=== PATIENT | female | born 1940 | race Two or more races ===

== ENCOUNTER 2016-11-16 17:38 | Emergency (ER) | payer OTHER ==
[~2016-11-16] VITALS: Ht 162.6 cm; Wt 57.7 kg
[2016-11-16 18:29] LABS: HEMATOCRIT 43.9 % (34.6-47.8); HEMOGLOBIN 14.4 g/dL (11.7-16.4); WHITE BLOOD COUNT 10.2 x10^3/uL (3.4-10)
[2016-11-16] MEDS ORDERED: SODIUM CHLORIDE 0.9% 1,000ML IVBOLUS ONE (18:30)
[2016-11-16] MEDS ORDERED: METF500T4 PO (18:36)
[2016-11-16 18:38] LABS: BLOOD UREA NITROGEN 18 mg/dL (7-18)
[2016-11-16 18:45] LABS: ASPARTATE AMINO TRANSFERASE 17 U/L (15-37)
[2016-11-16 18:47] LABS: IS PT STATUS REG ER OR PRE ER? YES
[2016-11-16] MEDS ORDERED: OMNIPAQUE 350 MG/ML, 100ML BOTTLE ONE (21:31)
[2016-11-16 22:41] VITALS: BP 125/61
== END 2016-11-16 22:44 | disposition home or self-care (01) ==
LOC: ED 20:30
DX: K21.9 Gastro-esophageal reflux disease without esophagitis (principal); G44.219 Episodic tension-type headache, not intractable; R94.31 Abnormal electrocardiogram [ECG] [EKG]; E11.9 Type 2 diabetes mellitus without complications
CPT/HCPCS: 36415; 71010; 74177; 80053; 81003; 83605; 83690; 84443; 84484; 85025; 93005; 99285; J7030; Q9967

== ENCOUNTER 2017-02-10 18:26 | Emergency (ER) | payer MEDICAID, OTHER ==
[~2017-02-10] VITALS: Ht 160 cm; Wt 58.2 kg
[~2017-02-10 18:26] MED LIST: METF500T4 PO
[2017-02-10] MEDS ORDERED: SODIUM CHLORIDE 0.9% 1,000 ML IV ONE (18:43)
[2017-02-10] MEDS ORDERED: ONDANSETRON 2MG/ML, 2ML ONE (18:52)
[2017-02-10] MEDS ORDERED: FAMOTIDINE 20 MG/2 ML ONE (18:52)
[2017-02-10] MEDS ORDERED: SODIUM CHLORIDE 0.9% 1,000ML IVBOLUS ONE (19:00)
[2017-02-10] MEDS ORDERED: FAMOTIDINE 20 MG/2 ML IVP ONE (19:00)
[2017-02-10] MEDS ORDERED: ONDANSETRON 2MG/ML, 2ML IVPush ONE (19:00)
[2017-02-10 19:13] LABS: HEMATOCRIT 42.9 % (34.6-47.8); HEMOGLOBIN 14.3 g/dL (11.7-16.4); WHITE BLOOD COUNT 7.5 x10^3/uL (3.4-10)
[2017-02-10 19:24] LABS: BLOOD UREA NITROGEN 13 mg/dL (7-18)
[2017-02-10 19:27] LABS: ASPARTATE AMINO TRANSFERASE 24 U/L (15-37)
[2017-02-10] MEDS ORDERED: MECLIZINE CHEWABLE 25 MG TAB ONE (19:46)
[2017-02-10] MEDS ORDERED: MECLIZINE CHEWABLE 25 MG TAB PO ONE (20:00)
[2017-02-10 20:02] LABS: PATH.CAST-FLAG NOT PRESENT; SPERM-FLAG NOT PRESENT; SRC-FLAG NOT PRESENT; XTAL-FLAG NOT PRESENT; YLC-FLAG NOT PRESENT
[2017-02-10] MEDS ORDERED: OMNIPAQUE 350 MG/ML, 100ML BOTTLE ONE (20:18)
[2017-02-10 22:26] VITALS: BP 168/80
== END 2017-02-10 22:28 | disposition home or self-care (01) ==
LOC: ED 22:04
DX: K52.9 Noninfective gastroenteritis and colitis, unspecified (principal); E11.9 Type 2 diabetes mellitus without complications; K21.9 Gastro-esophageal reflux disease without esophagitis
CPT/HCPCS: 36415; 70450; 74177; 80053; 81001; 83690; 85025; 87086; 93005; 96361; 96374; 96375; 99285; J2405; J7030; Q9967; S0028

== ENCOUNTER 2017-09-10 19:52 | Inpatient (IN) | payer MEDICARE, MEDICAID ==
[~2017-09-10] VITALS: Ht 162.6 cm; Wt 64.6 kg
[~2017-09-10 19:52] MED LIST changes: -METF500T4 PO; +METF500T5 PO
[2017-09-10] MEDS ORDERED: ONDANSETRON 2MG/ML, 2ML IVPush ONE (20:30)
[2017-09-10] MEDS ORDERED: SODIUM CHLORIDE FLUSH 10ML SYR IVF ONE (20:30)
[2017-09-10] MEDS ORDERED: MORPHINE SULFATE 4 MG/ML, 1ML IVPush PRN (20:30)
[2017-09-10] MEDS ORDERED: SODIUM CHLORIDE 0.9% 1,000ML IVBOLUS ONE (20:30)
[2017-09-10 20:48] LABS: BASOPHILS # (AUTO) 0.01 x10^3/uL (0-0.1); BASOPHILS % (AUTO) 0 % (0-1); EOSINOPHILS # (AUTO) 0.02 x10^3/uL (0-0.4); EOSINOPHILS % (AUTO) 0 % (1-7); LYMPHOCYTES # (AUTO) 0.65 x10^3/uL (1-3.4); LYMPHOCYTES % (AUTO) 6 % (22-44); MD NO; MEAN CORPUSCULAR HEMOGLOBIN 28.7 pg (27.0-34.8); MEAN CORPUSCULAR HGB CONC 33.5 g/dL (32.4-35.8); MEAN CORPUSCULAR VOLUME 85.8 fL (80-100); MEAN PLATELET VOLUME 8.8 fL (7.4-10.4); MONOCYTES # (AUTO) 0.26 x10^3/uL (0.2-0.8); MONOCYTES % (AUTO) 2 % (2-9); NEUTROPHILS # (AUTO) 10.44 x10^3/uL (1.8-6.8); NEUTROPHILS % (AUTO) 92 % (42-75); PLATELET COUNT 169 x10^3/uL (130-400); RED BLOOD COUNT 4.95 x10^6/uL (3.82-5.3); RED CELL DISTRIBUTION WIDTH 13.6 % (9.6-15.2)
[2017-09-10 20:53] LABS: ALBUMIN 3.8 g/dL (3.4-5.0); ANION GAP 9 mmol/L (5-15); CALCIUM 10.1 mg/dL (8.5-10.1); CHLORIDE 108 mmol/L (98-107)
[2017-09-10] MEDS ORDERED: ONDANSETRON ODT 4 MG ONE (20:57)
[2017-09-10] MEDS ORDERED: MORPHINE SULFATE 4 MG/ML, 1ML ONE (20:57)
[2017-09-10 20:58] LABS: ALANINE AMINOTRANSFERASE 633 U/L (12-78); ALKALINE PHOSPHATASE 82 U/L (45-117); BILIRUBIN,TOTAL 2.8 mg/dL (0.2-1.0); TOTAL PROTEIN 7.4 g/dL (6.4-8.2); TROPONIN I < 0.015 ng/mL (0.000-0.045)
[2017-09-10 21:02] LABS: MICROSCOPIC INDICATED
[2017-09-10 21:04] LABS: CULTURE INDICATED? YES
[2017-09-10] MEDS ORDERED: hydrALAzine 20 MG/ML, 1ML IVPush PRN (23:00)
[2017-09-10] MEDS ORDERED: ONDANSETRON 2MG/ML, 2ML IVPush PRN (23:00)
[2017-09-10] MEDS ORDERED: POLYETHYLENE GLYCOL 17 GM PACKET PO PRN (23:00)
[2017-09-10 23:21] LABS: INTERNATIONAL NORMALIZED RATIO 1.01 (0.93-1.1); PROTHROMBIN TIME 10.4 Seconds (9.6-11.5)
[2017-09-11] MEDS: SODIUM CHLORIDE 0.9% 1,000 ML IV SCH ×2 (00:30→16:10)
[2017-09-11 00:41] VITALS: BP 114/53
[2017-09-11 04:55] VITALS: BP 127/63
[2017-09-11 05:54] LABS: BASOPHILS # (AUTO) 0.01 x10^3/uL (0-0.1); BASOPHILS % (AUTO) 0 % (0-1); EOSINOPHILS # (AUTO) 0.09 x10^3/uL (0-0.4); EOSINOPHILS % (AUTO) 1 % (1-7); LYMPHOCYTES # (AUTO) 0.71 x10^3/uL (1-3.4); LYMPHOCYTES % (AUTO) 5 % (22-44); MD NO; MEAN CORPUSCULAR HEMOGLOBIN 28.7 pg (27.0-34.8); MEAN CORPUSCULAR HGB CONC 33.6 g/dL (32.4-35.8); MEAN CORPUSCULAR VOLUME 85.3 fL (80-100); MEAN PLATELET VOLUME 8.6 fL (7.4-10.4); MONOCYTES # (AUTO) 0.54 x10^3/uL (0.2-0.8); MONOCYTES % (AUTO) 4 % (2-9); NEUTROPHILS # (AUTO) 13.38 x10^3/uL (1.8-6.8); NEUTROPHILS % (AUTO) 91 % (42-75); PLATELET COUNT 167 x10^3/uL (130-400); RED BLOOD COUNT 4.52 x10^6/uL (3.82-5.3); RED CELL DISTRIBUTION WIDTH 13.8 % (9.6-15.2)
[2017-09-11 06:08] LABS: CALCIUM 8.7 mg/dL (8.5-10.1); CHLORIDE 109 mmol/L (98-107)
[2017-09-11 06:13] LABS: ALANINE AMINOTRANSFERASE 515 U/L (12-78); ALKALINE PHOSPHATASE 76 U/L (45-117); ANION GAP 5 mmol/L (5-15); BILIRUBIN,TOTAL 4.2 mg/dL (0.2-1.0); CREATININE 0.79 mg/dL (0.55-1.02); TOTAL PROTEIN 6.4 g/dL (6.4-8.2)
[2017-09-11 06:54] VITALS: BP 116/51
[2017-09-11] MEDS ORDERED: MAGNESIUM SULFATE PMX 2GM/50ML 50 ML IV ONE (07:00)
[2017-09-11] MEDS ORDERED: ACETAMINOPHEN 500 MG TABLET PO ONE (07:00)
[2017-09-11] MEDS ORDERED: IBUPROFEN 200 MG TABLET PO PRN (07:00)
[2017-09-11 13:33] VITALS: BP 131/66
[2017-09-11] MEDS ORDERED: METF1000 PO (15:04)
[2017-09-11 21:43] VITALS: BP 102/63
[2017-09-11] MEDS: CEFTRIAXONE PMX 2GM/50ML 50 ML IV SCH (22:38)
[2017-09-12 01:06] VITALS: BP 92/49
[2017-09-12 05:19] LABS: BASOPHILS # (AUTO) 0.02 x10^3/uL (0-0.1); BASOPHILS % (AUTO) 0 % (0-1); EOSINOPHILS # (AUTO) 0.31 x10^3/uL (0-0.4); EOSINOPHILS % (AUTO) 4 % (1-7); LYMPHOCYTES % (AUTO) 12 % (22-44); MD NO; MEAN CORPUSCULAR HEMOGLOBIN 28.5 pg (27.0-34.8); MEAN CORPUSCULAR HGB CONC 33.3 g/dL (32.4-35.8); MEAN CORPUSCULAR VOLUME 85.5 fL (80-100); MEAN PLATELET VOLUME 9.1 fL (7.4-10.4); MONOCYTES # (AUTO) 0.54 x10^3/uL (0.2-0.8); MONOCYTES % (AUTO) 7 % (2-9); NEUTROPHILS # (AUTO) 6.02 x10^3/uL (1.8-6.8); NEUTROPHILS % (AUTO) 77 % (42-75); PLATELET COUNT 136 x10^3/uL (130-400); RED BLOOD COUNT 4.25 x10^6/uL (3.82-5.3); RED CELL DISTRIBUTION WIDTH 13.8 % (9.6-15.2)
[2017-09-12 05:21] LABS: CALCIUM 8.7 mg/dL (8.5-10.1); CHLORIDE 110 mmol/L (98-107)
[2017-09-12 05:28] LABS: ALANINE AMINOTRANSFERASE 282 U/L (12-78); ALBUMIN 2.4 g/dL (3.4-5.0); ALKALINE PHOSPHATASE 66 U/L (45-117); ANION GAP 10 mmol/L (5-15); BILIRUBIN,TOTAL 3.8 mg/dL (0.2-1.0); CREATININE 0.68 mg/dL (0.55-1.02); TOTAL PROTEIN 5.9 g/dL (6.4-8.2)
[2017-09-12] MEDS: SODIUM CHLORIDE 0.9% 1,000 ML IV SCH ×2 (05:42→19:27)
[2017-09-12 09:39] VITALS: BP 100/48
[2017-09-12 12:30] VITALS: BP 107/61
[2017-09-12] MEDS: METRONIDAZOLE PMX 500MG/100ML 100 ML IV SCH ×2 (13:34→21:17)
[2017-09-12] MEDS: POTASSIUM CHLORIDE 20 MEQ TAB.ER.PRT PO SCH ×2 (17:29→19:26)
[2017-09-12 21:17] VITALS: BP 106/56
[2017-09-12] MEDS: CEFTRIAXONE PMX 2GM/50ML 50 ML IV SCH (22:48)
[2017-09-13 03:52] VITALS: BP 114/58
[2017-09-13] MEDS: METRONIDAZOLE PMX 500MG/100ML 100 ML IV SCH ×3 (04:32→20:34)
[2017-09-13 05:44] LABS: CHLORIDE 111 mmol/L (98-107)
[2017-09-13 05:45] LABS: BASOPHILS # (AUTO) 0.03 x10^3/uL (0-0.1); BASOPHILS % (AUTO) 1 % (0-1); EOSINOPHILS # (AUTO) 0.19 x10^3/uL (0-0.4); EOSINOPHILS % (AUTO) 3 % (1-7); LYMPHOCYTES # (AUTO) 0.94 x10^3/uL (1-3.4); LYMPHOCYTES % (AUTO) 15 % (22-44); MD NO; MEAN CORPUSCULAR HEMOGLOBIN 28.2 pg (27.0-34.8); MEAN CORPUSCULAR HGB CONC 32.9 g/dL (32.4-35.8); MEAN CORPUSCULAR VOLUME 85.6 fL (80-100); MEAN PLATELET VOLUME 9.3 fL (7.4-10.4); MONOCYTES # (AUTO) 0.65 x10^3/uL (0.2-0.8); MONOCYTES % (AUTO) 11 % (2-9); NEUTROPHILS # (AUTO) 4.36 x10^3/uL (1.8-6.8); NEUTROPHILS % (AUTO) 71 % (42-75); PLATELET COUNT 136 x10^3/uL (130-400); RED CELL DISTRIBUTION WIDTH 13.8 % (9.6-15.2)
[2017-09-13 05:58] LABS: ALANINE AMINOTRANSFERASE 188 U/L (12-78); ALBUMIN 2.3 g/dL (3.4-5.0); ALKALINE PHOSPHATASE 68 U/L (45-117); ANION GAP 7 mmol/L (5-15); BILIRUBIN,TOTAL 1.3 mg/dL (0.2-1.0); CREATININE 0.55 mg/dL (0.55-1.02); TOTAL PROTEIN 5.6 g/dL (6.4-8.2)
[2017-09-13] MEDS ORDERED: MAGNESIUM SULFATE IV ONE (08:00)
[2017-09-13] MEDS ORDERED: STERILE WATER IV ONE (08:00)
[2017-09-13] MEDS ORDERED: MAGNESIUM SULFATE IN WATER 50 ML IVPB ONE (08:30)
[2017-09-13 08:48] VITALS: BP 101/59
[2017-09-13] MEDS: SODIUM CHLORIDE 0.9% 1,000 ML IV SCH ×2 (09:20→18:22)
[2017-09-13] MEDS: POTASSIUM PHOSPHATE 44 MEQ in SODIUM CHLORIDE 0.9% 500 ML IV SCH ×2 (09:51→20:25)
[2017-09-13] MEDS ORDERED: PROPOFOL 10 MG/ML, 50ML ONE (11:17)
[2017-09-13] MEDS ORDERED: FENTANYL PF 100 MCG/2ML IV PRN (12:00)
[2017-09-13] MEDS ORDERED: ACETAMINOPHEN 325 MG TABLET PO PRN (12:00)
[2017-09-13] MEDS ORDERED: MORPHINE SULFATE 4 MG/ML, 1ML IVPush PRN (12:00)
[2017-09-13] MEDS ORDERED: ONDANSETRON ODT 8 MG PO PRN (12:00)
[2017-09-13] MEDS ORDERED: INDOMETHACIN 50 MG SUPP.RECT ONE (12:00)
[2017-09-13] MEDS ORDERED: INDOMETHACIN 50 MG SUPP.RECT PR ONE (12:00)
[2017-09-13] MEDS ORDERED: OXYcodone 5 MG/5 ML ORAL.SOL UDC PO PRN (12:00)
[2017-09-13] MEDS ORDERED: GLYCOPYRROLATE 0.4 MG/2 ML, 2ML ONE (12:41)
[2017-09-13] MEDS ORDERED: hydrALAzine 20 MG/ML, 1ML ONE (12:55)
[2017-09-13] MEDS ORDERED: GLYCOPYRROLATE 0.2MG/1ML, 5ML IVPush ONE (13:00)
[2017-09-13 13:42] VITALS: BP 134/62
[2017-09-13] MEDS ORDERED: FENTANYL PF 100 MCG/2ML ONE (18:03)
[2017-09-13 21:27] VITALS: BP 139/68
[2017-09-13] MEDS: CEFTRIAXONE PMX 2GM/50ML 50 ML IV SCH (21:54)
[2017-09-14 01:26] VITALS: BP 132/62
[2017-09-14] MEDS: METRONIDAZOLE PMX 500MG/100ML 100 ML IV SCH ×3 (04:33→21:19)
[2017-09-14 04:57] LABS: BASOPHILS # (AUTO) 0.03 x10^3/uL (0-0.1); BASOPHILS % (AUTO) 1 % (0-1); EOSINOPHILS # (AUTO) 0.24 x10^3/uL (0-0.4); EOSINOPHILS % (AUTO) 5 % (1-7); LYMPHOCYTES # (AUTO) 1.22 x10^3/uL (1-3.4); LYMPHOCYTES % (AUTO) 25 % (22-44); MD NO; MEAN CORPUSCULAR HEMOGLOBIN 28.2 pg (27.0-34.8); MEAN CORPUSCULAR HGB CONC 32.7 g/dL (32.4-35.8); MEAN CORPUSCULAR VOLUME 86.3 fL (80-100); MEAN PLATELET VOLUME 9.3 fL (7.4-10.4); MONOCYTES # (AUTO) 0.69 x10^3/uL (0.2-0.8); MONOCYTES % (AUTO) 14 % (2-9); NEUTROPHILS % (AUTO) 55 % (42-75); PLATELET COUNT 145 x10^3/uL (130-400); RED BLOOD COUNT 4.16 x10^6/uL (3.82-5.3); RED CELL DISTRIBUTION WIDTH 13.7 % (9.6-15.2)
[2017-09-14 05:04] LABS: CHLORIDE 114 mmol/L (98-107)
[2017-09-14 05:13] LABS: ALANINE AMINOTRANSFERASE 140 U/L (12-78); ALBUMIN 2.4 g/dL (3.4-5.0); ALKALINE PHOSPHATASE 67 U/L (45-117); ANION GAP 7 mmol/L (5-15); BILIRUBIN,TOTAL 1.1 mg/dL (0.2-1.0); CALCIUM 8.8 mg/dL (8.5-10.1); TOTAL PROTEIN 5.8 g/dL (6.4-8.2)
[2017-09-14 05:19] LABS: HEMOGLOBIN A1C 6.9 % (4.2-6.3)
[2017-09-14 07:50] VITALS: BP 125/65
[2017-09-14] MEDS: SODIUM CHLORIDE 0.9% 1,000 ML IV SCH (09:37)
[2017-09-14 13:35] VITALS: BP_SYST 148; BP_SYST 174; BP_DIAS 69; BP_DIAS 90
[2017-09-14 19:24] VITALS: BP 131/61
[2017-09-14] MEDS: CEFTRIAXONE PMX 2GM/50ML 50 ML IV SCH (22:46)
[2017-09-15] MEDS: SODIUM CHLORIDE 0.9% 1,000 ML IV SCH ×2 (01:11→15:17)
[2017-09-15 01:46] VITALS: BP 151/71
[2017-09-15] MEDS: METRONIDAZOLE PMX 500MG/100ML 100 ML IV SCH ×3 (04:55→21:59)
[2017-09-15 05:28] LABS: BASOPHILS # (AUTO) 0.06 x10^3/uL (0-0.1); BASOPHILS % (AUTO) 1 % (0-1); EOSINOPHILS % (AUTO) 4 % (1-7); LYMPHOCYTES # (AUTO) 1.47 x10^3/uL (1-3.4); LYMPHOCYTES % (AUTO) 28 % (22-44); MD NO; MEAN CORPUSCULAR HEMOGLOBIN 28.2 pg (27.0-34.8); MEAN CORPUSCULAR HGB CONC 33.2 g/dL (32.4-35.8); MEAN CORPUSCULAR VOLUME 85.1 fL (80-100); MEAN PLATELET VOLUME 9.1 fL (7.4-10.4); MONOCYTES # (AUTO) 0.67 x10^3/uL (0.2-0.8); MONOCYTES % (AUTO) 13 % (2-9); NEUTROPHILS # (AUTO) 2.93 x10^3/uL (1.8-6.8); NEUTROPHILS % (AUTO) 55 % (42-75); PLATELET COUNT 171 x10^3/uL (130-400); RED BLOOD COUNT 4.23 x10^6/uL (3.82-5.3); RED CELL DISTRIBUTION WIDTH 13.5 % (9.6-15.2)
[2017-09-15 05:40] LABS: ALBUMIN 2.5 g/dL (3.4-5.0); ANION GAP 8 mmol/L (5-15); CALCIUM 9.3 mg/dL (8.5-10.1); CHLORIDE 109 mmol/L (98-107)
[2017-09-15 05:44] LABS: ALANINE AMINOTRANSFERASE 115 U/L (12-78); ALKALINE PHOSPHATASE 67 U/L (45-117); BILIRUBIN,TOTAL 0.7 mg/dL (0.2-1.0); CREATININE 0.53 mg/dL (0.55-1.02); TOTAL PROTEIN 5.8 g/dL (6.4-8.2)
[2017-09-15 07:40] VITALS: BP 144/62
[2017-09-15 14:50] VITALS: BP 170/75
[2017-09-15 15:05] VITALS: BP 164/67
[2017-09-15 18:57] VITALS: BP 126/73
[2017-09-15] MEDS: CEFTRIAXONE PMX 2GM/50ML 50 ML IV SCH (21:19)
[2017-09-16 02:36] VITALS: BP 152/77
[2017-09-16] MEDS: METRONIDAZOLE PMX 500MG/100ML 100 ML IV SCH ×2 (04:48→12:58)
[2017-09-16] MEDS: SODIUM CHLORIDE 0.9% 1,000 ML IV SCH (04:50)
[2017-09-16 05:34] LABS: BASOPHILS # (AUTO) 0.04 x10^3/uL (0-0.1); BASOPHILS % (AUTO) 1 % (0-1); EOSINOPHILS # (AUTO) 0.26 x10^3/uL (0-0.4); EOSINOPHILS % (AUTO) 5 % (1-7); LYMPHOCYTES # (AUTO) 2.08 x10^3/uL (1-3.4); LYMPHOCYTES % (AUTO) 38 % (22-44); MD NO; MEAN CORPUSCULAR HEMOGLOBIN 28.5 pg (27.0-34.8); MEAN CORPUSCULAR HGB CONC 33.2 g/dL (32.4-35.8); MEAN CORPUSCULAR VOLUME 85.9 fL (80-100); MEAN PLATELET VOLUME 8.8 fL (7.4-10.4); MONOCYTES # (AUTO) 0.73 x10^3/uL (0.2-0.8); MONOCYTES % (AUTO) 13 % (2-9); NEUTROPHILS # (AUTO) 2.32 x10^3/uL (1.8-6.8); NEUTROPHILS % (AUTO) 43 % (42-75); PLATELET COUNT 186 x10^3/uL (130-400); RED BLOOD COUNT 4.27 x10^6/uL (3.82-5.3); RED CELL DISTRIBUTION WIDTH 13.9 % (9.6-15.2)
[2017-09-16 05:38] LABS: ALBUMIN 2.6 g/dL (3.4-5.0); ANION GAP 3 mmol/L (5-15); CHLORIDE 111 mmol/L (98-107)
[2017-09-16 05:43] LABS: ALANINE AMINOTRANSFERASE 110 U/L (12-78); ALKALINE PHOSPHATASE 68 U/L (45-117); CREATININE 0.67 mg/dL (0.55-1.02); TOTAL PROTEIN 6.2 g/dL (6.4-8.2)
[2017-09-16] MEDS ORDERED: POTASSIUM PHOSPHATE 44 MEQ in SODIUM CHLORIDE 0.9% 500 ML IV ONE (07:30)
[2017-09-16 08:22] VITALS: BP 148/71
[2017-09-16] MEDS: MAGNESIUM OXIDE 400 MG TABLET PO SCH ×3 (09:00→19:58)
[2017-09-16] MEDS: metroNIDAZOLE 500 MG TABLET PO SCH ×3 (13:00→19:58)
[2017-09-16 13:19] VITALS: BP 164/63
[2017-09-16] MEDS ORDERED: LIDOCAINE-MPF 1%, 2ML ONE (13:58)
[2017-09-16 19:04] VITALS: BP 150/66
[2017-09-16] MEDS: CEFTRIAXONE PMX 2GM/50ML 50 ML IV SCH (19:58)
[2017-09-17 01:17] VITALS: BP 145/60
[2017-09-17 07:05] VITALS: BP 140/71
[2017-09-17] MEDS ORDERED: MAGN400T26 PO (08:19)
[2017-09-17] MEDS ORDERED: POLY17PO5 PO (08:19)
[2017-09-17] MEDS ORDERED: METR500T PO (08:19)
[2017-09-17] MEDS ORDERED: ACET325T14 PO (08:19)
[2017-09-17] MEDS ORDERED: CEFT1FRO2 IV (08:19)
[2017-09-17] MEDS ORDERED: POTASSIUM PHOSPHATE 44 MEQ in SODIUM CHLORIDE 0.9% 500 ML IV ONE (08:30)
[2017-09-17] MEDS ORDERED: MAGNESIUM SULFATE PMX 2GM/50ML 50 ML IV ONE (08:30)
[2017-09-17] MEDS: metroNIDAZOLE 500 MG TABLET PO SCH ×2 (09:13→15:30)
== END 2017-09-17 15:37 | DRG 872 ==
LOC: ED 21:32 → MERGE 22:55 → EDIP 22:55 → 3NE 23:33
PROVIDERS: ADMIT Hospitalist; ATTEND Hospitalist
PROC: 0F798ZZ Dilation of Common Bile Duct, Via Natural or Artificial Opening Endoscopic (ICD-10-PCS; 2017-09-13)
PROC: 0FC98ZZ Extirpation of Matter from Common Bile Duct, Via Natural or Artificial Opening Endoscopic (ICD-10-PCS; 2017-09-13)
PROC: BF131ZZ Fluoroscopy of Gallbladder and Bile Ducts using Low Osmolar Contrast (ICD-10-PCS; 2017-09-13)
PROC: 0F998ZZ Drainage of Common Bile Duct, Via Natural or Artificial Opening Endoscopic (ICD-10-PCS; 2017-09-13)
PROC: 02HV33Z Insertion of Infusion Device into Superior Vena Cava, Percutaneous Approach (ICD-10-PCS; principal; 2017-09-16)
PROC: B5181ZA Fluoroscopy of Superior Vena Cava using Low Osmolar Contrast, Guidance (ICD-10-PCS; 2017-09-16)
DX: A41.59 Other Gram-negative sepsis (principal); N39.0 Urinary tract infection, site not specified; K80.31 Calculus of bile duct with cholangitis, unspecified, with obstruction; E44.0 Moderate protein-calorie malnutrition; B96.20 Unspecified Escherichia coli [E. coli] as the cause of diseases classified elsewhere; B96.89 Other specified bacterial agents as the cause of diseases classified elsewhere; E11.9 Type 2 diabetes mellitus without complications; E83.39 Other disorders of phosphorus metabolism; E83.42 Hypomagnesemia; E87.6 Hypokalemia; I27.20 Pulmonary hypertension, unspecified; K57.10 Diverticulosis of small intestine without perforation or abscess without bleeding; K76.0 Fatty (change of) liver, not elsewhere classified; N28.1 Cyst of kidney, acquired
CPT/HCPCS: 36415; 36569; 71045; 74181; 74328; 76700; 76937; 77001; 80053; 80074; 81001; 82962; 83036; 83690; 83735; 84100; 84484; 85025; 85610; 85730; 87040; 87077; 87086; 87186; 93005; 93306; 96374; J0696; J2405; J2704; J3010; J3490; C1751; C1769; J0360; J3475; J7030; J7040

== ENCOUNTER 2017-10-01 05:38 | Day surgery (SDC) | payer MEDICARE, MEDICAID ==
[~2017-10-01] VITALS: Ht 162.6 cm; Wt 60.7 kg
[~2017-10-01 05:38] MED LIST changes: +ACET325T14 PO; +CEFT1FRO2 IV; +MAGN400T26 PO; +METF1000 PO; +METR500T PO; +POLY17PO5 PO
[2017-10-01] MEDS ORDERED: LACTATED RINGERS 1,000 ML IV SCH ×2 (06:35→08:14)
[2017-10-01] MEDS ORDERED: BUPIVACAINE/PF-EPI 0.5% 1:200K ONE (06:52)
[2017-10-01 07:09] VITALS: BP 137/78
[2017-10-01] MEDS ORDERED: FENTANYL PF 250 MCG/5ML ONE (07:16)
[2017-10-01] MEDS ORDERED: MIDAZOLAM 1 MG/ML, 2ML ONE (07:16)
[2017-10-01] MEDS ORDERED: CEFOTETAN PMX 2GM/50ML 50 ML ONE (07:17)
[2017-10-01] MEDS ORDERED: PROPOFOL 10 MG/ML, 20ML ONE (07:17)
[2017-10-01] MEDS ORDERED: PHENYLEPHRINE 10 MG/ML ONE (07:17)
[2017-10-01] MEDS ORDERED: LIDOCAINE-MPF 2% ,5ML ONE (07:17)
[2017-10-01] MEDS ORDERED: ROCURONIUM 10MG/ML,5ML ONE (07:18)
[2017-10-01] MEDS ORDERED: DEXAMETHASONE 4 MG/ML, 1ML ONE ×2 (07:19)
[2017-10-01] MEDS ORDERED: GLYCOPYRROLATE 0.2MG/1ML, 5ML ONE (07:26)
[2017-10-01] MEDS ORDERED: NEOSTIGMINE 1 MG/ML, 10ML ONE (07:26)
[2017-10-01] MEDS ORDERED: BUPIVACAINE/PF-EPI 0.5% 1:200K INFIL ONE (07:49)
[2017-10-01] MEDS ORDERED: ACETAMINOPHEN 650 MG/20.3 ML UDC ONE (08:29)
[2017-10-01] MEDS ORDERED: OXYcodone 5 MG/5 ML ORAL.SOL UDC ONE (08:29)
[2017-10-01] MEDS ORDERED: FENTANYL PF 100 MCG/2ML ONE (08:29)
[2017-10-01] MEDS ORDERED: HYDROmorphone 1 MG/ML, 1ML IV PRN (08:30)
[2017-10-01] MEDS ORDERED: ACETAMINOPHEN 325 MG TABLET PO PRN (08:30)
[2017-10-01] MEDS ORDERED: OXYcodone 5 MG/5 ML ORAL.SOL UDC PO PRN (08:30)
[2017-10-01] MEDS ORDERED: PROMETHAZINE 25 MG/ML, 1ML IV PRN (08:30)
[2017-10-01] MEDS ORDERED: HALOPERIDOL 5 MG/ML IV PRN (08:30)
[2017-10-01] MEDS ORDERED: LABETALOL 5MG/ML, 20ML IV PRN (08:30)
[2017-10-01] MEDS ORDERED: MEPERIDINE/PF 25MG/0.5ML IVPush PRN (08:30)
[2017-10-01] MEDS ORDERED: morphine SULFATE 10 MG/ML, 1ML IVPush PRN (08:30)
[2017-10-01] MEDS ORDERED: ONDANSETRON 2MG/ML, 2ML IVPush PRN (08:30)
[2017-10-01] MEDS: FENTANYL PF 100 MCG/2ML IV PRN ×2 (08:33→08:42)
[2017-10-01] MEDS ORDERED: LABETALOL 5MG/ML, 20ML ONE (08:43)
[2017-10-01] MEDS ORDERED: hydrALAzine 20 MG/ML, 1ML ONE (09:16)
[2017-10-01] MEDS ORDERED: hydrALAzine 20 MG/ML, 1ML IV PRN (09:30)
== END 2017-10-01 17:45 ==
LOC: OUT 05:38
PROVIDERS: ATTEND Surgery
DX: K80.10 Calculus of gallbladder with chronic cholecystitis without obstruction (principal); E11.9 Type 2 diabetes mellitus without complications; Z98.51 Tubal ligation status
CPT/HCPCS: 47562; 82962; 88304; 93005; J0360; J1100; J2250; J2370; J2704; J2710; J3010; J3490; S0074